=== PATIENT | female | born 1960 | race American Indian/Alaskan Native ===

== ENCOUNTER 2022-06-24 11:51 | Outpatient (CLI) | payer MEDICAID ==
--- NOTE | 2022-06-24 14:26 | XRay Report ---
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 No large joint effusion. No displa lennie fracture. Signer Name: Keanu Morton MD Signed: 06/24/2022 2:22 PM Workstation Name: [id number]
== END 2022-06-24 11:52 | disposition home or self-care (01) ==
LOC: XRAY 11:51
PROVIDERS: ATTEND Orthopaedic Surgery
DX: M17.0 Bilateral primary osteoarthritis of knee (principal)